=== PATIENT | female | born 2000 | race Caucasian/White ===

== ENCOUNTER → 2019-10-07 19:00 | Observation (INO) | END | disposition home or self-care (01) | LOC: 1NENULAB | PROVIDERS: ADMIT Obstetrics & Gynecology; ATTEND Obstetrics & Gynecology ==

== ENCOUNTER → 2019-10-11 02:30 | Observation (INO) | END | disposition home or self-care (01) | LOC: 1NENULAB | PROVIDERS: ADMIT Obstetrics & Gynecology; ATTEND Obstetrics & Gynecology ==

== ENCOUNTER 2019-10-11 09:36 | Inpatient (IN) ==
[2019-10-11] MEDS ORDERED: Metoclopramide 10 MG/2 ML VIAL IVP PRN (09:39)
[2019-10-11] MEDS ORDERED: Famotidine 20 MG/2 ML VIAL IVP PRN (09:39)
[2019-10-11] MEDS ORDERED: Naloxone 0.4 MG/ML INJ IVP PRN (09:39)
[2019-10-11] MEDS ORDERED: Lidocaine 1% 20 ML MDV INFILT PRN (09:39)
[2019-10-11] MEDS: Ringers Solution, Lactated 1,000 ML IVC SCH ×2 (09:48→10:56)
[2019-10-11] MEDS ORDERED: Ropivacaine/PF 0.2% 20 ML VIAL EP ONE (09:49)
[2019-10-11] MEDS ORDERED: EPHEDrine 50 MG/ML VIAL IVP PRN (09:49)
[2019-10-11] MEDS ORDERED: *HR* FentaNYL (PF) 100 MCG/2 ML VIAL EP ONE (09:50)
[2019-10-11] MEDS ORDERED: Epidural Premix (fent/bupiv) 110 ML EP SCH (10:00)
[2019-10-11] MEDS ORDERED: *HR* FentaNYL (PF) 100 MCG/2 ML VIAL ONE (10:03)
[2019-10-11] MEDS ORDERED: Ropivacaine/PF 0.2% 20 ML VIAL ONE (10:03)
[2019-10-11 10:13] LABS: Basophils % 0.2 %; Hematocrit 37.5 % (35.3-44.9); Hemoglobin 12.2 g/dL (11.5-15.4); Immature Granulocytes % 0.7 % (0-4); Lymphocytes # 1.4 K/mcL (0.6-4.6); Lymphocytes % 6.3 %; Mean Corpuscular HGB Conc 32.5 g/dL (31.6-35.5); Mean Corpuscular Hemoglobin 28.6 pg (28.0-33.3); Mean Platelet Volume 10.9 fL (9.4-12.4); Monocytes # 0.4 K/mcL (0.0-1.3); Monocytes % 1.8 %; Neutrophils # 19.7 K/mcL (1.6-8.9); Platelet Count 252 K/mcL (140-400); Red Blood Count 4.26 M/mcL (3.82-4.97); Red Cell Distribution Width 12.7 % (11.5-14.5); White Blood Count 21.7 K/mcL (4.3-11.1)
[2019-10-11 10:20] LABS: Amphetamine Screen,Urine Negative ng/mL (Cutoff=1000); Barbiturate Screen,Urine Negative ng/mL (Cutoff=200); Benzodiazepines Screen,Urine Negative ng/mL (Cutoff=200); Cannabinoid Screen,Urine Positive ng/mL (Cutoff = 50); Cocaine Screen,Urine Negative ng/mL (Cutoff= 300); Opiate Screen,Urine Negative ng/mL (Cutoff=300); Phencyclidine Screen,Urine Negative ng/mL (Cutoff=25)
[2019-10-11] MEDS ORDERED: Oxytocin 20 units/ LR 1000 mL 20 UNIT/1,000 ML BAG IVC ONE ×3 (12:03→16:15)
[2019-10-11] MEDS ORDERED: Ondansetron 4 MG/2 ML VIAL IVP ONE (14:41)
[2019-10-11] MEDS ORDERED: Ondansetron 4 MG/2 ML VIAL ONE (14:45)
[2019-10-11] MEDS ORDERED: Benzocaine/Menthol 56 GM AEROSOL SPRAY TP PRN (16:15)
[2019-10-11] MEDS ORDERED: Oxytocin 20 units/ LR 1000 mL 20 UNIT/1,000 ML BAG IVC SCH (16:15)
[2019-10-11] MEDS ORDERED: Acetaminophen 325 MG TABLET PO PRN (16:15)
[2019-10-11] MEDS ORDERED: Rho Immune Globulin 1,500 UNIT SYRINGE IM PRN (16:15)
[2019-10-11] MEDS ORDERED: Measles/Mumps/Rubella Vacc 0.5 ML VIAL SQ PRN (16:15)
[2019-10-11] MEDS ORDERED: Lanolin 7 G OINT...G. TP PRN (16:15)
[2019-10-11] MEDS: Ibuprofen 600 MG TABLET PO PRN (18:13)
[2019-10-12 07:12] LABS: Basophils # 0.1 K/mcL (0.0-0.2); Basophils % 0.4 %; Eosinophils # 0.1 K/mcL (0.0-0.6); Eosinophils % 0.4 %; Hematocrit 30.9 % (35.3-44.9); Immature Granulocytes % 0.7 % (0-4); Lymphocytes # 3.2 K/mcL (0.6-4.6); Mean Corpuscular HGB Conc 33.3 g/dL (31.6-35.5); Mean Corpuscular Hemoglobin 28.9 pg (28.0-33.3); Mean Corpuscular Volume 86.8 fL (83.0-100.0); Mean Platelet Volume 10.8 fL (9.4-12.4); Monocytes # 1.2 K/mcL (0.0-1.3); Monocytes % 7.3 %; Neutrophils # 12.2 K/mcL (1.6-8.9); Nucleated Red Blood Cells 0.1 /100 WBC (0); Platelet Count 258 K/mcL (140-400); Red Blood Count 3.56 M/mcL (3.82-4.97); Red Cell Distribution Width 12.4 % (11.5-14.5); Segmented Neutrophils % 72.2 %; White Blood Count 16.8 K/mcL (4.3-11.1)
[2019-10-12 07:14] LABS: Hemoglobin 10.3 g/dL (11.5-15.4)
[2019-10-12] MEDS ORDERED: NON-FORMULARY MEDICATION 1 EACH EACH (Prenatal Vitamin Tablet 1 TAB) PO SCH (09:00)
[2019-10-12] MEDS ORDERED: Prenatal Vit/FA 1 EACH TABLET PO SCH (09:00)
[2019-10-12] MEDS: Ibuprofen 600 MG TABLET PO PRN (15:02)
[2019-10-12 16:19] VITALS: BP 112/70
== END 2019-10-12 20:30 | disposition home or self-care (01) | DRG 560 ==
LOC: 1NENULAB → 1NENUOBS 15:40
PROVIDERS: ADMIT Student in an Organized Health Care Education/Training Program; ATTEND Student in an Organized Health Care Education/Training Program